=== PATIENT | female | born 1995 | race Asian ===

== ENCOUNTER 2016-07-20 01:27 | Emergency (ER) | payer OTHER ==
[~2016-07-20] VITALS: Ht 167.6 cm; Wt 60.2 kg
[2016-07-20 01:33] VITALS: TEMP 37.6; Ht 167.6 cm; Wt 60.2 kg
[2016-07-20] MEDS ORDERED: ONDANSETRON INJ 2 MG/ML 2 ML VIAL IV STA (02:06)
[2016-07-20] MEDS ORDERED: SODIUM CHLORIDE 0.9% 1000ML 1,000 ML IV STA (02:06)
--- NOTE | 2016-07-20 02:48 | EMERGENCY ROOM VISIT NOTE ---
ED Visit Note First contact with patient: 01:39 Chief Complaint: Vomiting, Diarrhea History of Present Illness: Patient is a 21-year-old female who presents to the emergency Department this morning for evaluation of her nausea, vomiting, abdominal pain. She reports that she ate some chicken noted some Sunday which she felt may have been poorly cut. She developed her symptoms this morning. She's had diarrhea as well. She reports the pain waxes and wanes. She denies any fevers or chills. She reports no blood in her vomit or stool. She reports minimal discomfort at this time, but reports the pain fluctuates in intensity of 7/10. She reports no history of prior surgeries to the abdomen. She denies utilizing vjvj-nuo-crwbmeh medications for pain. She denies any fevers, chills , chest pain, palpitations, short of breath, hematochezia, melena, hematuria, or dysuria. Medications: No current medications. Allergies: No known allergies. PMH: No pertinent past medical history. SHx: Patient is a 21-year-old [employer] student who lives with roommates. ROS: All pertinent positive and negative review of systems are appropriately documented in the History of Present Illness. Physical Exam: VITAL SIGNS - Vital signs and nursing notes were reviewed. GENERAL - 21-year-old female appearing her stated age who is in no acute distress. Communicates well with provider and answers questions appropriately. LUNGS - Chest wall symmetric without accessory muscle use, intercostals retractions, or central cyanosis. Normal vesicular breath sounds CTA B/L. No wheezes, rales, or rhonchi appreciated. CARDIAC - RRR with S1/S2. No murmur, rubs, or gallops appreciated. ABDOMEN - Abdominal contour flat and without pulsations or visible masses. BS normoactive all four quadrants. No tenderness to palpation appreciated throughout. No guarding. No Rebound Tenderness. Negative Rovsing's. Negative Norton's. No palpable masses, hepatosplenomegaly, or ascites noted. PSYCH - A&Ox3 and cooperates fully with examiner. Pt is very pleasant and interacts well with examiner. ED Course: Patient was seen and evaluated by myself. Labs were ordered as were her fluids and antinausea medication. I was approached by nursing staff and reports the patient was declining any evaluation at this point. I did reevaluate the patient. The patient reports that she feels fine at this time and does not was to be evaluated. I did question the patient needed a school note. She asked if she could receive a note for the next several days. I politely declined. Her friends in the room began to laugh. Patient was offered further evaluation which she declines at this point. She was instructed to follow-up with [facility] [address] from today's visit. She was educated on worrisome symptoms for return visit to the emergency department. Patient discharged home afebrile and in good condition. In the evaluation and treatment of this patient, the following differential diagnoses were considered: Appendicitis, Diverticulitis, Diverticulosis, Colitis , Ischemic Colitis, Inflammatory Bowel Disease, Irritable Bowel Disease, Ovarian Torsion, Ectopic, , Kidney Stone, Pyelonephritis, Hydronephrosis, Cholecystitis, Ascending Cholangitis, Choledocholithiasis, GERD. Impression: Nausea, Vomiting, and Diarrhea, Abdominal Pain Discharge Instructions: You've been seen in the emergency department today for nausea, vomiting, diarrhea, and abdominal pain. For pain control, you can use the following wkhj-vwe-dhylwfb medicines (if >12 yo): - Regular strength (325mg/tab) Tylenol (acetaminophen) 2 tabs every 4-6 hours as needed. Do not exceed 12 tablets in a 24 hour period. Avoid taking more than 4 grams (4000 mg) of Tylenol per day. This includes any other sources of acetaminophen you may take on a regular basis. - Regular strength (200 mg/tab) Advil (ibuprofen) 1-2 tabs every 4-6 hours as needed. Do not exceed a dose of 3200 mg per day. Follow-up with [facility] [address] from today's visit. Return for any changing or worsening symptoms. Current/Historical Medications No Active Prescriptions or Reported Meds Allergies Coded Allergies: No Known Allergies (Unverified , 07/20/16) Vital Signs Date Time Temp Pulse Resp B/P Pulse Ox O2 Delivery O2 Flow Rate FiO2 07/20/16 03:01 98 20 103/71 95 07/20/16 01:33 37.6 95 18 118/65 96 Room Air Laboratory Results Test 07/20/16 02:30 Urine Color DK YELLOW Urine Appearance ERROR (CLEAR) Urine pH 6.5 (4.5-7.5) Urine Specific [place] 1.030 (1.000-1.030) Urine Protein NEG (NEG) Urine Glucose (UA) NEG (NEG) Urine Ketones TRACE (NEG) Urine Occult Blood TRACE (NEG) Urine Nitrite NEG (NEG) Urine Bilirubin NEG (NEG) Urine Urobilinogen NEG (NEG) Urine Leukocyte Esterase MODERATE (NEG) Urine WBC (Auto) 10-30 /hpf (0-5) Urine RBC (Auto) 5-10 /hpf (0-4) Urine Hyaline Casts (Auto) 0 /lpf (0-5) Urine Epithelial Cells (Auto) >30 /lpf (0-5) Urine Bacteria (Auto) 4+ (NEG) Date/Time Source Procedure Growth Status 07/20/16 02:30 Urine , Clean Catch Urine Culture - Final THREE TYPES OF ORGANSIMS PRESENT, ALL... Complete Departure Information Impression Primary Impression: Nausea, vomiting, and diarrhea Additional Impression: Abdominal pain Dispostion Home / Self-Care Condition GOOD Prescriptions No Active Prescriptions or Reported Meds Referrals No Doctor, Assigned (PCP) Patient Instructions Abdominal Pain - [facility], [facility] Additional Instructions You've been seen in the emergency department today for nausea, vomiting, diarrhea, and abdominal pain. For pain control, you can use the following vcly-qad-jbvsitf medicines (if >12 yo): - Regular strength (325mg/tab) Tylenol (acetaminophen) 2 tabs every 4-6 hours as needed. Do not exceed 12 tablets in a 24 hour period. Avoid taking more than 4 grams (4000 mg) of Tylenol per day. This includes any other sources of acetaminophen you may take on a regular basis. - Regular strength (200 mg/tab) Advil (ibuprofen) 1-2 tabs every 4-6 hours as needed. Do not exceed a dose of 3200 mg per day. Follow-up with [facility] [address] from today's visit. Return for any changing or worsening symptoms. Problem Qualifiers Additional Impression: Abdominal pain Abdominal location: unspecified location Qualified Codes: R10.9 - Unspecified abdominal pain
[2016-07-20 03:01] VITALS: BP 103/71; PULSE 98; O2SAT 95
[2016-07-20 03:33] LABS: URINE BILIRUBIN NEG (NEG); URINE COLOR DK YELLOW; URINE EPITHELIAL CELL AUTO >30 /lpf (0-5); URINE NITRITE NEG (NEG); URINE PH 6.5 (4.5-7.5); UROBILINOGEN NEG (NEG); ZZUR CULT IF INDIC CLEAN CATCH YES
[2016-07-20 03:43] LABS: MANUAL MICROSCOPIC REQUIRED? NO; REVIEW REQ? YES
== END 2016-07-20 03:02 | disposition home or self-care (01) ==
LOC: C.EDB 01:28
DX: R11.2 Nausea with vomiting, unspecified (principal); R19.7 Diarrhea, unspecified; R10.9 Unspecified abdominal pain